=== PATIENT | male | born 1945 | race Caucasian/White ===

== ENCOUNTER 2023-10-26 19:41 | Emergency (ER) | payer MEDICARE, OTHER, SELFPAY ==
[2023-10-26 19:43] VITALS: BP 105/71
--- NOTE | 2023-10-26 20:05 | ED.GENMED ---
History of Present Illness
General
Chief Complaint: Fever
Source: patient
Exam Limitations: none
Time Seen by Provider: 10/26/23 19:55
Nursing documentation reviewed up to this point in time: agreed with
Travel History
Have you had any contact with someone who has COVID-19?: No
Do you have any symptoms of coronavirus? Fever > 100 degrees, chills, cough, shortness of breath, sore throat, loss of taste or smell, muscle aches, or headache?: No
History of Present Illness
History of Present Illness:
Patient to ED with complaint of fever and chills x 1 week. He was seen by PCP and placed on macrobid for suspected UTI. States he did not have any in improvement. He was evaluated by his urololgist who placed him on Bactrim DS. He was told to
come to ED if after 2 days he did not improve. He reports no improvement.
Past History
Past History
ED Past Medical History: CAD, HTN and Hypercholesterolemia
ED Past Surgical History: Cardiac (stents) and Urological (Urostomy x 15 yrs)
Review of Systems
Review of Systems
Allergies reviewed?: Yes
All Other Systems: ROS reviewed and negative except as documented in HPI and ROS
Constitutional: Reports fever and chills
EENT: Reports no symptoms
Respiratory: Reports no symptoms
Cardiac: Reports no symptoms
ABD/GI: Reports no symptoms
: Reports no symptoms
Musculoskeletal: Reports no symptoms
Skin: Reports no symptoms
Neurological: Reports no symptoms
Psychiatric: Reports no symptoms
Phy Exam
General Physical Exam
General Presentation: well appearing and no apparent distress
General age: appears stated age
General Skin: warm and dry
General Habitus: normal
General Mental: alert
Pulmonary Exam
Pulmonary Exam: lungs clear and no respiratory distress
Gastrointestinal Exam
Gastrointestinal Exam: normal bowel sounds, non tender, soft, no organomegaly, non distended, no cva tenderness and other (Urostomy tube intact. No redness, swelling or discharge at insertion site. Tube changed by urologist every 10 weeks. Last
change 3 weeks ago.)
Musculoskeletal Exam
Musculoskeletal Exam: full ROM and neuro vasc intact
Skin Exam
Skin Exam: normal color, warm/dry and no rash
Psychiatric Exam
Psychiatric Exam: normal mood/affect
Course
Orders/Labs/Results
Orders:
Orders
10/26/23 20:04
CR Chest - 2 Views Urgent
Comment:
Reason For Exam: fever
10/26/23 20:08
Blood Culture Q30M
IKER Source: Blood/Venous
Specimen Description:
Blood Culture Q30M
IKER Source: Blood/Venous
Specimen Description:
10/26/23 20:09
COVID-19 Antigen Urgent
Source: Nasal Swab
Complete Blood Count/With Diff Urgent
Comprehensive Metabolic Panel Urgent
Lactic Acid Urgent
Influenza A+B Rapid Molecular Urgent
IKER Source: Nasal Swab
Specimen Description:
10/26/23 20:16
Urinalysis Reflex To Culture Urgent
Date Specimen was Collected: 10/26/23
Time Specimen was Collected: 20:15
Urine Microscopic Reflex Cult Urgent
Urine Culture Urgent
IKER Source: U
Specimen Description:
Date Specimen was Collected: 10/26/23
Time Specimen was Collected: 20:15
10/26/23 20:58
CefTRIAXone [Rocephin] 1,000 mg IV NOW STA
Abnormal Lab Results
10/26/23 10/26/23
20:09 20:16
RBC 4.41 L 10^6/uL
(4.70-6.10)
MCH 32.0 H pg
(27.0-31.0)
Abs Immat Gran (auto) 0.1 H 10^3/uL
(0-0.05)
Absolute Lymphs (auto) 1.0 L 10^3/uL
(1.2-3.4)
Immature Gran % 1.2 H %
(0-0.5)
Lymphocytes % 14.5 L %
(20.5-51.1)
Sodium 133 L mmol/L
(135-145)
Glucose 140 H mg/dl
(70-99)
Lactic Acid 2.1 H mmol/L
(0.7-2.0)
Ur Occult Blood Reflex Trace A
(Negative)
Leukocyte Esterase Rfl 1+ A
(Negative)
Urine WBC (Reflex) 16-20 A /HPF
(0-5)
10/26/23 20:09
10/26/23 20:09
Vital Signs
Initial and Last Documented VS:
Initial Vital Signs
Temp Pulse Resp BP Pulse Ox
98.1 F 77 16 105/71 94
10/26/23 19:43 10/26/23 19:43 10/26/23 19:43 10/26/23 19:43 10/26/23 19:43
Last Documented Vital Signs
Temp Pulse Resp BP Pulse Ox
98.1 F 77 16 105/71 94
10/26/23 19:43 10/26/23 19:43 10/26/23 19:43 10/26/23 19:43 10/26/23 19:43
*Radiology
Radiology exam reviewed: radiology read reviewed
*Pulse Oximetry
Patient hypoxic: no
Update Note
Update Note:
Patient remains awake and alert, nontoxic appearing. Labs reviewed, normal WBC with sli elevation in lactic acid. Urine culture is pending. Will give dose of rocephin in dept and change antibiotic to cefadroxil 500mg bid. He is discharged josé miguel
and will follow closely with PCP and urology.
ED Attending Note
-
Portions of this chart may have been created with voice recognition software.� Occasional wrong word or��sound alike� substitutions may have occurred due to the inherent limitations of voice recognition software.
Discharge Plan
Departure
Patient with high blood pressure during this ER visit?: No
Condition: Good
Covid-19: Not Applicable
Discharge Problem:
Acute UTI
Prescriptions:
New
cefadroxil 500 mg capsule
500 mg PO BID Qty: 14 0RF
Referrals:
Ramesh Cruz MD [Family Provider] - Follow up in 2-3 days
Interventions
Interventions:
*Risk Screen - Suicide Last Done: 10/26/23 19:43
*General Assessment Last Done: 10/26/23 19:43
*Neglect/Abuse Screening Last Done: 10/26/23 19:43
ED- Fall Risk Assessment Last Done: 10/26/23 20:23
*ED COVID-19 Vaccine History Last Done: 10/26/23 20:23
ED- Neurological Assessment Last Done: 10/26/23 20:23
ED-Skin Assessment Last Done: 10/26/23 20:23
Discharge Date and Time
Print Language: AMHARIC
[2023-10-26 20:23] VITALS: BMI 25.5
[2023-10-26 20:24] LABS: Urine Albumin Negative (Neg - Trace); Urine Bilirubin Negative (Negative); Urine Character Clear (Clear); Urine Color Yellow; Urine Glucose Negative (Negative); Urine Ketone Negative (Negative); Urine Leukocyte 1+ (Negative); Urine Nitrite Negative (Negative); Urine Occult Blood Trace (Negative); Urine Urobilinogen Negative (Neg - 1+); Urine pH 6.5 (5.0-9.0)
[2023-10-26 20:25] LABS: % Basophils 0.9 % (0-2); % Eosinophils 1.3 % (0-6); % Immature Granulocytes 1.2 % (0-0.5); % Lymphocytes 14.5 % (20.5-51.1); % Neutrophils 75.1 % (42.2-75.2); Absolute Basophils 0.1 10^3/uL (0-0.2); Absolute Eosinophils 0.1 10^3/uL (0-0.7); Absolute Immature Granulocytes 0.1 10^3/uL (0-0.05); Absolute Monocytes 0.5 10^3/uL (0.1-0.6); Hemoglobin 14.1 g/dL (13.0-18.0); Mean Corp Hgb Conc. 35.3 g/dL (33.0-37.0); Mean Corpuscular Volume 90.7 fL (80.0-94.0); Mean Platelet Volume 9.1 fL (7.4-10.4); Nucleated Red Blood Cells % 0 % (-); Platelet Count 249 10^3/uL (130-400); Red Blood Cell Count 4.41 10^6/uL (4.70-6.10); Red Cell Dist. Width 13.6 % (11.5-14.5); White Blood Cell Count 6.7 10^3/uL (4.8-10.8)
[2023-10-26 20:36] LABS: ALT (SGPT) 35 U/L (0-50); AST (SGOT) 44 U/L (17-59); Albumin 3.9 g/dl (3.5-5.0); Alkaline Phosphatase 73 U/L (38-126); Blood Urea Nitrogen 9 mg/dl (9-20); Calcium 8.9 mg/dl (8.4-10.2); Carbon Dioxide 24 mmol/L (22-30); Chloride 101 mmol/L (98-107); Estimated Creatinine Clearance 61 ml/min; Glucose 140 mg/dl (70-99); Lactic Acid 2.1 mmol/L (0.7-2.0); Potassium 4.2 mmol/L (3.5-5.1); Sodium 133 mmol/L (135-145); Total Bilirubin 0.6 mg/dl (0.2-1.3); Total Protein 6.8 g/dl (6.3-8.2); eGFR > 60.00
[2023-10-26 20:37] LABS: COVID-19 Antigen Negative (Negative)
[2023-10-26 20:38] LABS: Urine Red Blood Cell 0-2 /HPF (0-2); Urine White Cell 16-20 /HPF (0-5)
[2023-10-26] MEDS: ROCEPHIN 1000 MG IV (21:14)
== END 2023-10-26 21:31 | disposition home or self-care (01) ==
LOC: EMR 19:41
PROVIDERS: Nurse Practitioner; EMERGENCY PHYSICIAN Emergency Medicine; FAMILY PHYSICIAN Internal Medicine
DX: N39.0 Urinary tract infection, site not specified (principal); I25.10 Atherosclerotic heart disease of native coronary artery without angina pectoris; I10 Essential (primary) hypertension; E78.00 Pure hypercholesterolemia, unspecified
CPT/HCPCS: 99283; 96374; 71046; 80053; 81003; 81015; 83605; 85025; 87040; 87086; 87502; 87811

== ENCOUNTER 2024-09-08 20:44 | Inpatient (IN) | payer MEDICARE, OTHER, SELFPAY ==
[2024-09-08 17:04] VITALS: BP 132/71
[2024-09-08 17:21] LABS: % Basophils 0.5 % (0-2); % Eosinophils 0.2 % (0-6); % Immature Granulocytes 0.4 % (0-0.5); % Monocytes 5.6 % (1.7-9.3); % Neutrophils 88.3 % (42.2-75.2); Absolute Basophils 0.1 10^3/uL (0-0.2); Absolute Immature Granulocytes 0.1 10^3/uL (0-0.05); Absolute Monocytes 1.1 10^3/uL (0.1-0.6); Absolute Neutrophils 17.1 10^3/uL (1.4-6.5); Hematocrit 44.3 % (39.0-52.0); Hemoglobin 15.8 g/dL (13.0-18.0); Mean Corp Hgb Conc. 35.7 g/dL (33.0-37.0); Mean Corpuscular Hgb 31.9 pg (27.0-31.0); Mean Corpuscular Volume 89.5 fL (80.0-94.0); Mean Platelet Volume 9.2 fL (7.4-10.4); Nucleated Red Blood Cells % 0 % (-); Platelet Count 258 10^3/uL (130-400); Red Blood Cell Count 4.95 10^6/uL (4.70-6.10); Red Cell Dist. Width 13.1 % (11.5-14.5); White Blood Cell Count 19.4 10^3/uL (4.8-10.8)
[2024-09-08 17:35] LABS: ALT (SGPT) 21 U/L (0-50); AST (SGOT) 24 U/L (17-59); Albumin 4.4 g/dl (3.5-5.0); Alkaline Phosphatase 66 U/L (38-126); Blood Urea Nitrogen 10 mg/dl (9-20); Calcium 9.5 mg/dl (8.4-10.2); Carbon Dioxide 20 mmol/L (22-30); Chloride 103 mmol/L (98-107); Glucose 172 mg/dl (70-99); Potassium 4.1 mmol/L (3.5-5.1); Sodium 136 mmol/L (135-145); Total Bilirubin 1.3 mg/dl (0.2-1.3); Total Protein 7.1 g/dl (6.3-8.2); eGFR > 60.00
--- NOTE | 2024-09-08 17:54 | ED.GENMED ---
History of Present Illness
General
Chief Complaint: Urinary Symptoms
Time Seen by Provider: 09/08/24 17:52
History of Present Illness
History of Present Illness:
78-year-old male presents emergency department for evaluation of fever, generalized weakness, and urinary frequency. He has a chronic indwelling suprapubic catheter and states he has had to empty it more often than normal. Denies any nausea
vomiting or diarrhea. Feels very weak and having difficulty ambulating under his own power.
Past History
Past History
ED Past Medical History: CAD, HTN and Hypercholesterolemia
ED Past Surgical History: Cardiac (stents) and Urological (Urostomy x 15 yrs)
Review of Systems
Review of Systems
Allergies reviewed?: Yes
All Other Systems: ROS reviewed and negative except as documented in HPI and ROS
Phy Exam
Physical Exam
Physical Exam:
GEN: Well appearing, NAD, WDWN
HEENT: Oral mucosa moist, no scleral icterus
Cardiac: Regular rate
Lung: No respiratory distress, no tachypnea
Abdomen: Soft, grossly nontender. Suprapubic catheter present
MSK: No gross deformity or injuries
Skin: Good color, no pallor or jaundice, no rashes
Neuro: AO x3, moves all extremities freely
Psych: Calm, cooperative
Course
Orders/Labs/Results
Orders:
Orders
09/08/24 Breakfast
Cholesterol Lowering
At Your Request: Full Participation
Does patient need a safe tray?: No
09/08/24 17:13
Complete Blood Count/With Diff Urgent
Comprehensive Metabolic Panel Urgent
09/08/24 18:03
0.9% Sodium Chloride 1000 ml [Nss] 1,000 ml IV BOLUS
LevoFLOXacin 750 MG/150 ML [Levaquin] 750 mg in 150 ml IV NOW
09/08/24 18:09
Urinalysis Reflex To Culture Urgent
Date Specimen was Collected: 09/08/24
Time Specimen was Collected: 17:56
Urine Microscopic Reflex Cult Urgent
Urine Culture Urgent
IKER Source: U
Specimen Description:
Date Specimen was Collected: 09/08/24
Time Specimen was Collected: 17:56
09/08/24 18:21
Lactic Acid Q4H
Comment: CANCEL 2nd LACTIC ACID IF 1st LACTIC ACID IS LESS THAN 2
Blood Culture Q30M
IKER Source: Blood/Venous
Specimen Description:
09/08/24 18:29
Blood Culture Q30M
IKER Source: Blood/Venous
Specimen Description:
09/08/24 20:21
Admit/Transfer Patient As Directed
Co-Sign Provider:
Level of Care: Inpatient admission
Assign to:: Medical/Surgical
Physician / Group: Sharath
Diagnosis: Sepsis, CAUTI
Reason for Hospitalization: IV abx
Expected length of stay greater than two midnights?: Yes
ELOS- Estimated Length of Stay in days: 3
I certify the patient meets the requirements for IP care: Yes
09/08/24 20:22
PRN Pain Medication Management As Directed
May give lesser potent ordered pain med per pt: Yes
preference::
Protocol:: Medication orders for pain may be administered in a
manner that supports deferring to patient preference
when the pt is:
- Requesting an ordered lesser potent pain medication.
Least to most potent pain medications are defined
as: acetaminophen < NSAID < tramadol < opioids
(morphine, oxycodone, hydromorphone).
- Requesting a lesser dose of the same medication IF
ORDERED.
- Requesting a less intrusive route of administration
if both routes are prescribed by the provider (PO <
IV).
09/08/24 20:24
Code Status As Directed
Resuscitation Status: Full Code
09/08/24 21:36
Acetaminophen [Tylenol] 650 mg PO Q4HPRN PRN
Zolpidem Tartrate [Ambien] 10 mg PO HSPRN PRN
09/08/24 21:36
Activity As Directed
Activity Level: Out of Bed-Early Mobility
With Assistance
Pneumatic Compression Sleeves As Directed
Type: Knee high
Vital Signs As Directed
Frequency: Per unit guidelines
DX Deep Vein Thrombosis Video Routine
09/08/24 22:58
Lactic Acid Q4H
Comment: CANCEL 2nd LACTIC ACID IF 1st LACTIC ACID IS LESS THAN 2
09/09/24 06:00
Basic Metabolic Panel IN AM
Complete Blood Count/No Diff IN AM
Levothyroxine [Synthroid] 25 mcg PO DAILY@0600
09/09/24 08:00
Aspirin Low Dose EC [Aspir Low (Enteric Coated)] 81 mg PO DAILY
Clopidogrel Bisulfate [Plavix] 75 mg PO DAILY
Ezetimibe [Zetia] 10 mg PO DAILY
Rosuvastatin Calcium [Crestor] 20 mg PO DAILY
Abnormal Lab Results
09/08/24 09/08/24 09/08/24
17:13 18:09 18:21
WBC 19.4 H 10^3/uL
(4.8-10.8)
MCH 31.9 H pg
(27.0-31.0)
Abs Immat Gran (auto) 0.1 H 10^3/uL
(0-0.05)
Absolute Neuts (auto) 17.1 H 10^3/uL
(1.4-6.5)
Absolute Lymphs (auto) 1.0 L 10^3/uL
(1.2-3.4)
Absolute Monos (auto) 1.1 H 10^3/uL
(0.1-0.6)
Neutrophils % 88.3 H %
(42.2-75.2)
Lymphocytes % 5.0 L %
(20.5-51.1)
Carbon Dioxide 20 L mmol/L
(22-30)
Glucose 172 H mg/dl
(70-99)
Lactic Acid 2.4 H mmol/L
(0.7-2.0)
Ur Occult Blood Reflex 2+ A
(Negative)
Urine Nitrite (Reflex) Positive A
(Negative)
Leukocyte Esterase Rfl 3+ A
(Negative)
Urine RBC 3-6 A /HPF
(0-2)
Urine WBC (Reflex) >100 A /HPF
(0-5)
Urine Bacteria (Reflex) Many A
(Negative)
Urine Albumin (Reflex) 2+ A
(Neg - Trace)
09/08/24 17:13
09/08/24 17:13
Vital Signs
Initial and Last Documented VS:
Initial Vital Signs
Temp Pulse Resp BP Pulse Ox
98.2 F 96 18 132/71 94
09/08/24 17:04 09/08/24 17:04 09/08/24 17:04 09/08/24 17:04 09/08/24 17:04
Last Documented Vital Signs
Temp Pulse Resp BP Pulse Ox
98.2 F 96 18 95/81 99
09/08/24 17:04 09/08/24 17:04 09/08/24 17:04 09/08/24 21:00 09/08/24 21:00
MDM/Problems Addressed
MDM/Problems Addressed:
Due to signs of sepsis associated with a catheter associated UTI will admit for IV antibiotics. The suprapubic catheter was changed at the bedside by myself
*Critical Care Note
Total Time (30-74mins, 75-104mins- exclusive of procedures): Not Applicable
ED Attending Note
-
Portions of this chart may have been created with voice recognition software.� Occasional wrong word or��sound alike� substitutions may have occurred due to the inherent limitations of voice recognition software.
Discharge Plan
Departure
Patient Disposition: Admit
Date of Disposition: 09/08/24
Time of Disposition: 19:56
Admit to: Med/Surg
Presentation/result/management discussed w/ accepting MD/DO: Hospitalist
Discharge Problem:
Urinary tract infection
Interventions
Interventions:
*Risk Screen - Suicide Last Done: 09/08/24 17:04
*General Assessment Last Done: 09/08/24 17:04
*Neglect/Abuse Screening Last Done: 09/08/24 17:06
*ED- Fall Risk Assessment Last Done: 09/08/24 18:35
*ED COVID-19 Vaccine History Last Done: 09/08/24 17:04
*Nursing Disposition Last Done: 09/08/24 21:38
ED-Male Genitourinary Assessment Last Done: 09/08/24 18:35
Discharge Date and Time
Discharge Date/Time: 09/08/24 21:38
[2024-09-08 18:33] VITALS: BP 108/59
[2024-09-08 18:34] VITALS: BMI 23.6
[2024-09-08 18:54] LABS: Lactic Acid 2.4 mmol/L (0.7-2.0)
[2024-09-08] MEDS: NSS 1000 IV (19:07)
[2024-09-08] MEDS: LEVAQUIN 150 IV (19:07)
[2024-09-08 19:40] LABS: Urine Albumin 2+ (Neg - Trace); Urine Bilirubin Negative (Negative); Urine Character Cloudy (Clear); Urine Color Yellow; Urine Glucose Negative (Negative); Urine Ketone Negative (Negative); Urine Leukocyte 3+ (Negative); Urine Nitrite Positive (Negative); Urine Occult Blood 2+ (Negative); Urine Specific Gravity 1.015 (<1.030); Urine Urobilinogen Negative (Neg - 1+)
[2024-09-08 20:00] VITALS: BP 111/64
[2024-09-08 20:13] LABS: Urine Bacteria Many (Negative); Urine Squamous Cell 0-2 /LPF (Few); Urine White Cell >100 /HPF (0-5)
--- NOTE | 2024-09-08 20:26 | HPS.HSE ---
Addendum entered and electronically signed by Raza Early DO 09/08/24 21:15:
Patient seen and examined independently. Agree with findings and plan as set forth by Krista Ramos PA-C.
Patient is a 78y M with PMH significant for ASCVD, hypothyroidism and chronic urinary retention s/p suprapubic tube who presents to ED complaining of urinary frequency, urgency and generalized fatigue. Patient states that his symptoms started
today. He felt poorly overall and slept for about 4 hours today. He denies any abdominal pain, flank pain, etc.
Evaluation in the ED reveals UA consistent with infection.
Ass:
CAUTI
Sepsis secondary to the above
ASCVD
Hypothyroidism
Eczema
Insomnia
Plan:
Admit for further evaluation and treatment.
Continue levofloxacin pending culture data.
IVFs, suprapubic drainage (catheter changed in the ED0.
Continue usual outpatient medications.
Follow for clinical improvement.
Original Note:
Family Physician
-
Family Physician: NOT KNOW UNKNOWN - PT DOES
Chief Complaint
-
Weakness and Urinary Frequency
History of Present Illness
Patient is an 78 y/o male past medical history of coronary artery disease s/p stent, hyperlipidemia, hypothyroidism, eczema and chronic urinary retention with suprapubic tube who presents with weakness and urinary frequency. Patient has a capped
suprapubic urostomy. He reports he will empty his bladder via the urostomy but then shortly had has the sensation of needed to empty the bladder again. Today he developed profound weakness which was associated with temperature elevation of 99.5F.
Patient denies cloudy or foul smelling urine.
Medical History
Past Medical History
Past Medical History: Reports Other
Additional Past Medical History:
Coronary Artery Disease s/p Stents (2022)
Hyperlipidemia
Hypothyroidism
Eczema
Insomnia
Chronic Urinary Retention
Past Surgical History: Reports Other
Additional Past Surgical History:
Cardiac Stents
Suprapubic Tube
Social History
Tobacco: Former Smoker
Family History
Family History: Not pertinent
Allergies / Home Medications
Allergies reflects when Allergies were last updated in [employer].
Home Medications with original date entered in [employer]
Allergy/Medication List:
Allergies
Allergy/AdvReac Type Severity Reaction Status Date / Time
No Known Allergies Allergy Verified 09/08/24 17:06
Home Medications
aspirin 81 mg tablet 81 mg PO DAILY 09/08/24
clopidogrel 75 mg tablet 75 mg PO DAILY 09/08/24
dupilumab 300 mg/2 mL subcutaneous pen injector (Dupixent) 300 mg SC WEEKLY 09/08/24
ezetimibe 10 mg tablet 10 mg PO DAILY 09/08/24
levothyroxine 25 mcg tablet 25 mcg PO DAILY 09/08/24
rosuvastatin 20 mg tablet 20 mg PO DAILY 09/08/24
zolpidem 10 mg tablet 10 mg PO HSPRN PRN sleep 09/08/24
Review of Systems
-
A 12 point ROS was completed and negative except as noted: Yes
Constitutional: Denies Fever
Respiratory: Denies Cough or Trouble Breathing
Cardiac: Denies Chest Pain or Palpitations
Abdomen/GI: Denies Abdominal Pain, Nausea, Vomiting or Diarrhea
: Reports See HPI
Physical Exam
Vital Signs
Vital Signs
Temp Pulse Resp BP Pulse Ox
98.2 F 96 18 111/64 97
09/08/24 17:04 09/08/24 17:04 09/08/24 17:04 09/08/24 20:00 09/08/24 20:00
Physical Exam
General: Comfortable and Conversant
HEENT: Anicteric and Moist mucous membranes
Respiratory: Clear and Non Labored Respirations
Cardiac: S1/S2 and Regular Rhythm
GI: Soft and Non Tender
Genito-urinary: Suprapubic Tube
Musculoskeletal: No Clubbing and No Cyanosis
Skin: Warm and Dry
Neuro: Awake, Alert, Oriented and Nonfocal/grossly intact
Psych: Calm
Laboratory Results
-
09/08/24 17:13
09/08/24 17:13
Laboratory Results
Lactic Acid 2.4 mmol/L (0.7-2.0) H 09/08/24 18:21
Total Bilirubin 1.3 mg/dl (0.2-1.3) 09/08/24 17:13
AST 24 U/L (17-59) 09/08/24 17:13
ALT 21 U/L (0-50) 09/08/24 17:13
Alkaline Phosphatase 66 U/L (38-126) 09/08/24 17:13
Data Reviewed
-
Lab Data: Labs Reviewed by me
Old Records: Reviewed
Impression/Plan
-
Sepsis secondary to Catheter-Associated Urinary Tract Infection
-Continue Levaquin based on prior culture data
-Await urine culture
Coronary Artery Disease s/p Stents (2022)
-Continue aspirin and Plavix
Hyperlipidemia
-Continue Crestor and Zetia
Hypothyroidism
-Continue levothyroxine
Insomnia
-Continue Ambien
Eczema
-Patient maintained on Dupixent as outpatient
DVT proph: SCDs
Code Status: Full Code
[2024-09-08 21:00] VITALS: BP 95/81
--- NOTE | 2024-09-08 21:40 | PTCARENOTE ---
Patient arrived on unit from ED via stretcher - ambulated to bed with standby assist as patient reports recent issues with balance and some weakness. Patient is alert and oriented. Arrived with bed soaked in urine as cap to suprapubic cath was
removed and not replaced. SPT exchanged in ED. Connected to urinary drainage bag upon arrival. Patient requesting to have tube capped off, MD orders to have tube to drainage bag at this time - reviewed with patient and understanding met. PRN Tylenol
and Ambien provided to patient once settled and resting in bed comfortably at this time. Will monitor.
[2024-09-08 21:49] VITALS: BMI 23.7
[2024-09-08] MEDS: AMBIEN 10 MG PO (22:44)
[2024-09-08] MEDS: TYLENOL 650 MG PO (22:44)
[2024-09-08 23:00] VITALS: BP 100/60
[2024-09-08 23:30] LABS: Lactic Acid 1.4 mmol/L (0.7-2.0)
[2024-09-09 06:00] VITALS: BMI 23.5
[2024-09-09] MEDS: SYNTHROID 25 MCG PO (06:01)
[2024-09-09 06:40] LABS: Blood Urea Nitrogen 10 mg/dl (9-20); Calcium 8.8 mg/dl (8.4-10.2); Carbon Dioxide 22 mmol/L (22-30); Chloride 103 mmol/L (98-107); Estimated Creatinine Clearance 76 ml/min; Glucose 121 mg/dl (70-99); Potassium 3.6 mmol/L (3.5-5.1); Sodium 136 mmol/L (135-145); eGFR > 60.00
[2024-09-09 06:51] LABS: Hematocrit 38.5 % (39.0-52.0); Hemoglobin 13.7 g/dL (13.0-18.0); Mean Corp Hgb Conc. 35.6 g/dL (33.0-37.0); Mean Corpuscular Hgb 32.2 pg (27.0-31.0); Mean Corpuscular Volume 90.4 fL (80.0-94.0); Mean Platelet Volume 9.4 fL (7.4-10.4); Platelet Count 196 10^3/uL (130-400); Red Blood Cell Count 4.26 10^6/uL (4.70-6.10); White Blood Cell Count 19.9 10^3/uL (4.8-10.8)
[2024-09-09 07:00] VITALS: BP 99/52
[2024-09-09] MEDS: ASPIR LOW (ENTERIC COATED) 81 MG PO (07:46)
[2024-09-09] MEDS: CRESTOR 20 MG PO (07:46)
[2024-09-09] MEDS: ZETIA 10 MG PO (07:46)
[2024-09-09] MEDS: PLAVIX 75 MG PO (07:46)
--- NOTE | 2024-09-09 09:00 | W.PN.HOSP.TC ---
Today's Communication/Plan
-
Continue Levaquin
Urine culture and blood culture pending
Assessment / Plan
Assessment / Plan
78-year-old m with chronic suprapubic catheter presenting with urinary frequency and malaise
# Sepsis secondary to CAUTI
- UA consistent with infection
- UCx and BCx pending
- Catheter changed in the ED
- Lactic acid 2.4 --> 1.4
- On Levaquin based on prior culture
- Tolerating diet
# Hypothyroidism
- Continue levothyroxine
# HLP
- Continue home meds
# Hypertension
# CAD status post PCI and stents
- Continue DAPT
DVT prophylaxis SCDs
Anticipated Discharge: 24 - 48 hours
Subjective/Interval History
-
Date of Service: September 09, 2024
Objective Data
-
Labs:
Laboratory Results
09/09/24
05:23
WBC 19.9 H
Hgb 13.7
Hct 38.5 L
Plt Count 196 D
Sodium 136
Potassium 3.6
Chloride 103
Carbon Dioxide 22
BUN 10
Creatinine 0.8
Glucose 121 H
Calcium 8.8
Vital Signs:
Vital Signs
Temp Pulse Resp BP Pulse Ox
99.4 F 83 16 100/60 93
09/08/24 23:00 09/08/24 23:00 09/08/24 23:00 09/08/24 23:00 09/09/24 08:08
I&O
09/08/24 09/09/24 09/10/24
06:59 06:59 06:59
Output Total 350 / 350
Balance -350 / -350
Review of Systems
-
History Source: Patient
Constitutional: Reports No Symptoms and Fatigue
EENT: Reports No Symptoms Reported
Respiratory: Reports No Symptoms
Cardiac: Reports No Symptoms
Abdomen/GI: Reports No Symptoms
Breast: Reports No Symptoms
Genitourinary: Reports No Symptoms
Musculoskeletal: Reports No Symptoms
Skin: Reports No Symptoms
Neuro: Reports No Symptoms
Endocrine: Reports No Symptoms
Hematologic / Lymphatic: Reports No Symptoms
Physical Exam
-
General: Well Developed, Well Nourished, No Apparent Distress and Comfortable
HEENT: Normocephalic
Respiratory: Clear to Auscultation
Cardiac: Regular Rhythm and S1/S2
GI: Soft, Nontender, Nondistended and Normal Bowel Sounds
Genito-urinary: No Costovertebral Tender and Supra Pubic Tube
Musculoskeletal: No Clubbing, No Cyanosis and No Edema
Skin: Warm
Neuro: Awake, Alert, Oriented and AO x 3
Psych: Calm
--- NOTE | 2024-09-09 09:48 | CM ---
Patient seen at bedside.
DX: Sepsis, CAUTI
IA completed
Lives at home with 2 story, 3 steps to enter, flight to bed at bath
PLOF: Independent
Denies DME
Denies VN/Rehab
PCP: Ramesh Cruz, [facility]
Pharmacy: [facility]
PLAN: home, no needs anticipated, CM continue to follow
--- NOTE | 2024-09-09 13:48 | W.PN.UPDATE ---
Update Note
Progress Note Update
Seen and examined by me independently in collaboration with the anesthesiology medical doctor.
Lab data and imaging data reviewed.
Addendum as below :
His main symptom with a UTI was generalized weakness and ambulatory dysfunction secondary weakness. Today he is feeling better. Still has some dysuria. He had nausea yesterday but not today. Tolerating diet and the appetite is not great yet. No
shortness of breath.
Abdomen soft.
Continue with Levaquin for CAUTI .
Suprapubic catheter changed in the ED.
Patient with systemic symptom improvement. Continue to follow clinical improvement as well as culture data.
[2024-09-09 15:00] VITALS: BP 115/55
[2024-09-09] MEDS: LEVAQUIN 150 IV (17:35)
[2024-09-09] MEDS: AMBIEN 10 MG PO (22:50)
[2024-09-09] MEDS: TYLENOL 650 MG PO (22:50)
[2024-09-09 23:00] VITALS: BP 102/54
[2024-09-10] MEDS: SYNTHROID 25 MCG PO (05:48)
[2024-09-10 07:00] VITALS: BP 98/48
[2024-09-10] MEDS: CRESTOR 20 MG PO (07:55)
[2024-09-10] MEDS: PLAVIX 75 MG PO (07:55)
[2024-09-10] MEDS: ZETIA 10 MG PO (07:55)
[2024-09-10] MEDS: ASPIR LOW (ENTERIC COATED) 81 MG PO (07:55)
[2024-09-10 08:02] LABS: % Basophils 0.3 % (0-2); % Eosinophils 1.2 % (0-6); % Immature Granulocytes 0.5 % (0-0.5); % Lymphocytes 9.7 % (20.5-51.1); % Monocytes 7.2 % (1.7-9.3); % Neutrophils 81.1 % (42.2-75.2); Absolute Eosinophils 0.2 10^3/uL (0-0.7); Absolute Immature Granulocytes 0.1 10^3/uL (0-0.05); Absolute Lymphocytes 1.5 10^3/uL (1.2-3.4); Absolute Monocytes 1.1 10^3/uL (0.1-0.6); Absolute Neutrophils 12.5 10^3/uL (1.4-6.5); Hematocrit 40.9 % (39.0-52.0); Mean Corp Hgb Conc. 34.2 g/dL (33.0-37.0); Mean Corpuscular Hgb 31.7 pg (27.0-31.0); Mean Corpuscular Volume 92.5 fL (80.0-94.0); Mean Platelet Volume 9.6 fL (7.4-10.4); Nucleated Red Blood Cells % 0 % (-); Platelet Count 218 10^3/uL (130-400); Red Blood Cell Count 4.42 10^6/uL (4.70-6.10); Red Cell Dist. Width 13.2 % (11.5-14.5); White Blood Cell Count 15.4 10^3/uL (4.8-10.8)
[2024-09-10 08:15] LABS: Blood Urea Nitrogen 10 mg/dl (9-20); Calcium 8.9 mg/dl (8.4-10.2); Carbon Dioxide 23 mmol/L (22-30); Chloride 104 mmol/L (98-107); Estimated Creatinine Clearance 76 ml/min; Glucose 105 mg/dl (70-99); Potassium 3.8 mmol/L (3.5-5.1); Sodium 138 mmol/L (135-145); eGFR > 60.00
--- NOTE | 2024-09-10 09:40 | W.PN.HOSP.TC ---
Addendum entered and electronically signed by Kofi Devries MD 09/10/24 23:36:
Attending Addendum-
I saw and evaluated the patient. I reviewed the resident�s note and agree with findings and plan as documented in the resident�s note. Sub: regaining appetite. nrimala po. seen with . No fevers chills NV. Full 12 point ROS reviewed and negative
except as documented Exam: Vitals reviewed in chart GEN-NAd heart RRR lungs clear abd soft LE no edema SP tube in place draining clear yellow urine
Plan:
# Sepsis secondary to CAUTI
- UCx e coli- sensi pend
- BCx-NGTD
- Catheter changed in the ED
- leukocytosis resolving
- cont Levaquin for now
- Tolerating diet
- trend cbc
# Hypothyroidism
- Continue levothyroxine
# HLP
- Continue home meds
# Hypertension
# CAD status post PCI and stents
- Continue DAPT
DVT prophylaxis SCDs
Dispo DC home in am if sensi back
Time spent coordinating care, review of plan of care with resident, personally reviewed records in EMR, med rec, consults, notes, labs, radiology, d/w nursing and � 52 mins
Original Note:
Today's Communication/Plan
-
Continue Levaquin
Awaiting blood culture
Awaiting urine culture sensitivity
Assessment / Plan
Assessment / Plan
78-year-old m with chronic suprapubic catheter presenting with urinary frequency and generalized weakness.
Assessment/plan
1. CAUTI
Urinalysis�evidence of infection
White count trending down�15.4, patient is afebrile
Urine culture�E. coli
Catheter changed in the ED
Lactic acid 2.4 --> 1.4
Based on prior urine culture and sensitivity-Stenotrophomonas maltophilia sensitive to Levaquin
Started on Levaquin�day 2, continue
Tolerating diet well
2. Hypothyroidism
- Continue levothyroxine
3. Hyperlipidemia
- Continue rosuvastatin, ezetimibe
4.CAD s/p PCI and stents
- Continue aspirin, clopidogrel
DVT prophylaxis SCDs
PT/OT�no need of skilled rehab.
Anticipated Discharge: 24 - 48 hours
Subjective/Interval History
-
Date of Service: September 10, 2024
Patient reports having some muscle soreness.
Objective Data
-
Labs:
Laboratory Results
09/10/24
06:57
WBC 15.4 H
Hgb 14.0
Hct 40.9
Plt Count 218
Sodium 138
Potassium 3.8
Chloride 104
Carbon Dioxide 23
BUN 10
Creatinine 0.8
Glucose 105 H
Calcium 8.9
Vital Signs:
Vital Signs
Temp Pulse Resp BP Pulse Ox
98.1 F 74 18 102/54 97
09/09/24 23:00 09/09/24 23:00 09/09/24 23:00 09/09/24 23:00 09/09/24 23:00
I&O
09/09/24 09/10/24 09/11/24
06:59 06:59 06:59
Output Total 350 / 350 1300 / 1300
Balance -350 / -350 -1300 / -1300
Review of Systems
-
All other systems: Reviewed and negative (Mentioned as above)
Physical Exam
-
General: Well Developed, Well Nourished and No Apparent Distress
HEENT: Normocephalic and Atraumatic
Respiratory: Clear to Auscultation
Cardiac: Regular Rhythm and S1/S2
GI: Soft, Nontender, Nondistended and Normal Bowel Sounds
Genito-urinary: No Costovertebral Tender and Supra Pubic Tube
Skin: Warm and Dry
Neuro: Awake, Alert, Oriented and AO x 3
[2024-09-10] MEDS: TYLENOL 650 MG PO ×2 (10:56→19:57)
--- NOTE | 2024-09-10 11:05 | CM ---
Spoke with patient and spouse bedside.
Patient with SPT, care for himself at home.
IMM completed.
Per patient and spouse possible d/c tomorrow.
Plan: Home no needs anticipated.
[2024-09-10 15:17] VITALS: BP 93/51
[2024-09-10] MEDS: LEVAQUIN 150 IV (17:13)
[2024-09-10] MEDS: AMBIEN 10 MG PO (23:17)
[2024-09-10 23:47] VITALS: BP 114/60
[2024-09-11] MEDS: SYNTHROID 25 MCG PO (06:01)
[2024-09-11 07:25] VITALS: BP 112/62
[2024-09-11] MEDS: ZETIA 10 MG PO (07:48)
[2024-09-11] MEDS: PLAVIX 75 MG PO (07:48)
[2024-09-11] MEDS: CRESTOR 20 MG PO (07:48)
[2024-09-11] MEDS: ASPIR LOW (ENTERIC COATED) 81 MG PO (07:48)
[2024-09-11 08:31] LABS: Hematocrit 38.3 % (39.0-52.0); Hemoglobin 13.4 g/dL (13.0-18.0); Mean Corpuscular Hgb 31.8 pg (27.0-31.0); Mean Platelet Volume 9.7 fL (7.4-10.4); Platelet Count 216 10^3/uL (130-400); Red Blood Cell Count 4.21 10^6/uL (4.70-6.10); Red Cell Dist. Width 13.2 % (11.5-14.5); White Blood Cell Count 9.3 10^3/uL (4.8-10.8)
[2024-09-11 09:11] LABS: Blood Urea Nitrogen 10 mg/dl (9-20); Calcium 8.7 mg/dl (8.4-10.2); Carbon Dioxide 28 mmol/L (22-30); Chloride 102 mmol/L (98-107); Estimated Creatinine Clearance 76 ml/min; Glucose 99 mg/dl (70-99); Sodium 138 mmol/L (135-145); eGFR > 60.00
--- NOTE | 2024-09-11 10:31 | CM ---
Patient seen at bedside with daughter Sadaf
Electrocardiogram today
IMM explained & signed. In chart
PLAN: Home, no needs anticipated
to transport
[2024-09-11] MEDS: KEFLEX 500 MG PO (13:09)
[2024-09-11] MEDS: PREVNAR 20 0.5 ML IM (13:37)
[2024-09-11 13:50] VITALS: BP 110/60
--- NOTE | 2024-09-11 17:53 | W.PN.HOSP.TC ---
Addendum entered and electronically signed by Kofi Devries MD 09/12/24 00:31:
Attending Addendum-
I saw and evaluated the patient. I reviewed the resident�s note and agree with findings and plan as documented in the resident�s note. Sub: nirmala po. seen with and daughter. No fevers chills NV. Full 12 point ROS reviewed and negative except as
documented Exam: Vitals reviewed in chart GEN-NAd heart RRR lungs clear abd soft LE no edema SP tube in place draining clear yellow urine
Plan:
# Sepsis secondary to CAUTI
- UCx e coli- giles sensi deescalate to keflex x 10 total days treatment
- BCx-NGTD
- Catheter changed in the ED
- leukocytosis resolved
- Tolerating diet
# Hypothyroidism
- Continue levothyroxine
# HLP
- Continue home meds
# Hypertension
# CAD status post PCI and stents
- Continue DAPT
DVT prophylaxis SCDs
Dispo DC home
Time spent coordinating care, DC planning, review of DC plan of care with resident, transition of care, review of records, med rec/scripts sent electronically, consults, notes, d/w consultants, nursing, family, pharmacy and CM� 33 mins
Original Note:
Today's Communication/Plan
-
discharge on Keflex 500 mg, twice daily.
Assessment / Plan
Assessment / Plan
78-year-old m with chronic suprapubic catheter presenting with urinary frequency and generalized weakness.
Assessment/plan
1. CAUTI
Urinalysis�evidence of infection
White count trending down�9.3, patient is afebrile
Urine culture�E. coli
Catheter changed in the ED
Transitioned from Levaquin to Keflex, will discharge him on Keflex 500 mg, twice daily for 4 more days.
Tolerating diet well
2. Hypothyroidism
- Continue levothyroxine
3. Hyperlipidemia
- Continue rosuvastatin, ezetimibe
4.CAD s/p PCI and stents
- Continue aspirin, clopidogrel
DVT prophylaxis SCDs
PT/OT�no need of skilled rehab.
Anticipated Discharge: Today
Subjective/Interval History
-
Date of Service: September 11, 2024
Objective Data
-
Labs:
Laboratory Results
09/11/24
07:10
WBC 9.3
Hgb 13.4
Hct 38.3 L
Plt Count 216
Sodium 138
Potassium 4.0
Chloride 102
Carbon Dioxide 28
BUN 10
Creatinine 0.8
Glucose 99
Calcium 8.7
Vital Signs:
Vital Signs
Temp Pulse Resp BP Pulse Ox
98.0 F 66 16 110/60 94
09/11/24 13:50 09/11/24 13:50 09/11/24 13:50 09/11/24 13:50 09/11/24 07:25
I&O
09/10/24 09/11/24 09/12/24
06:59 06:59 06:59
Intake Total 960 / 960 480 / 480
Output Total 1300 / 1300 1650 / 1650 700 / 700
Balance -1300 / -1300 -690 / -690 -220 / -220
Physical Exam
-
General: Well Developed, Well Nourished and No Apparent Distress
HEENT: Normocephalic and Atraumatic
Respiratory: Clear to Auscultation
Cardiac: Regular Rhythm and S1/S2
GI: Soft, Nontender, Nondistended and Normal Bowel Sounds
Genito-urinary: Supra Pubic Tube (Clear urine in the bag)
Skin: Warm and Dry
Neuro: Awake, Alert, Oriented and AO x 3
--- NOTE | 2024-09-12 20:11 | W.DCSUMMARY ---
Addendum entered and electronically signed by Kofi Devries MD 09/12/24 23:43:
Read, reviewed, and agree. See same day progress note for additional details.
Micah Devries MD
Original Note:
Documented by User: Joey Scott MD, Resident 09/12/24 20:22
Discharge Summary
Discharge Data
Date of Admission: 09/08/24
Date of Discharge: 09/11/24
-
Pending Results: No
Hospital Course
Discharging Physician : Dr. Kofi Devries, Dr. Cook.
Disposition : Home
Principal Discharge diagnosis : Catheter associated urinary tract infection
Chronic Discharge diagnosis : Hypothyroidism, hyperlipidemia, hypertension, CAD s/p PCI and stents
Hospital Course : 78 y/o male past medical history of coronary artery disease s/p stent, hyperlipidemia, hypothyroidism, eczema and chronic urinary retention with suprapubic tube who presents with weakness and urinary frequency. Patient has a
capped suprapubic urostomy. He reports he will empty his bladder via the urostomy but then shortly had has the sensation of needed to empty the bladder again. Suprapubic catheter was changed in the ED. UA consistent with infection, elevated
lactate at 2.4, elevated white count. Patient was started on Levaquin based on prior culture. Urine culture�E. coli, blood culture was negative. Patient has been monitored with daily labs and vitals. His home medications for hypertension,
hypothyroidism, and hyperlipidemia, CAD has been continued. PT/OT did not recommend skilled rehab. Patient has clinically improved, and stable to be discharged home. Antibiotic transitioned from Levaquin to Keflex at discharge.
Discharge Plan
-
Patient Disposition: Home (Routine Discharge)
Discharge Diagnosis/Procedures: CAUTI
Condition: Good
Diet: Low Cholesterol
Activity: As tolerated
Driving Restrictions: As prior to admission
Instructions: Lowering the risk of a catheter-associated urinary tract infection
Referrals:
UNKNOWN - PT DOES,NOT KNOW [Family Provider] -
Ramesh Cruz MD [Non-Admitting Privileges] - in less than 1 week
Prescriptions:
New
cephalexin 500 mg Capsule
500 mg PO Q12H Qty: 7 0RF
Continued
clopidogrel 75 mg tablet
75 mg PO DAILY
levothyroxine 25 mcg tablet
25 mcg PO DAILY
zolpidem 10 mg tablet
10 mg PO HSPRN PRN (Reason: sleep)
ezetimibe 10 mg tablet
10 mg PO DAILY
rosuvastatin 20 mg tablet
20 mg PO DAILY
Dupixent Pen 300 mg/2 mL pen injector
300 mg SC WEEKLY
aspirin 81 mg Tablet
81 mg PO DAILY
Discharge Orders:
Discharge Patient (As Directed); Ordered 09/11/24
Ordered By: Joey Scott
Discharge Date and Time
Discharge Date/Time: 09/11/24 13:55
Print Language: AUSTRIAN

Documented by User: Kofi Devries MD 09/12/24 23:43
Discharge Summary
Discharge Data
Date of Admission: 09/08/24
Date of Discharge: 09/12/24
Discharge Plan
-
Patient Disposition: Home (Routine Discharge)
Discharge Diagnosis/Procedures: CAUTI
Condition: Good
Diet: Low Cholesterol
Activity: As tolerated
Driving Restrictions: As prior to admission
Instructions: Lowering the risk of a catheter-associated urinary tract infection
Referrals:
UNKNOWN - PT DOES,NOT KNOW [Family Provider] -
Ramesh Cruz MD [Non-Admitting Privileges] - in less than 1 week
Prescriptions:
New
cephalexin 500 mg Capsule
500 mg PO Q12H Qty: 7 0RF
Continued
clopidogrel 75 mg tablet
75 mg PO DAILY
levothyroxine 25 mcg tablet
25 mcg PO DAILY
zolpidem 10 mg tablet
10 mg PO HSPRN PRN (Reason: sleep)
ezetimibe 10 mg tablet
10 mg PO DAILY
rosuvastatin 20 mg tablet
20 mg PO DAILY
Dupixent Pen 300 mg/2 mL pen injector
300 mg SC WEEKLY
aspirin 81 mg Tablet
81 mg PO DAILY
Discharge Orders:
Discharge Patient (As Directed); Ordered 09/11/24
Ordered By: Joey Scott
Discharge Date and Time
Discharge Date/Time: 09/11/24 13:55
Print Language: AUSTRIAN
== END 2024-09-11 13:55 | disposition home or self-care (01) | DRG 698 ==
LOC: 3 WEST ACU 20:44
PROVIDERS: Physician Assistant; Physician Assistant Medical; Student in an Organized Health Care Education/Training Program; ADMITTING PHYSICIAN Hospitalist; ATTENDING PHYSICIAN Family Medicine; EMERGENCY PHYSICIAN Emergency Medicine
PROC: 3E0234Z Introduction of Serum, Toxoid and Vaccine into Muscle, Percutaneous Approach (ICD-10-PCS; 2024-09-11)
DX: T83.518A Infection and inflammatory reaction due to other urinary catheter, initial encounter (principal); A41.9 Sepsis, unspecified organism; N39.0 Urinary tract infection, site not specified; Y84.6 Urinary catheterization as the cause of abnormal reaction of the patient, or of later complication, without mention of misadventure at the time of the procedure; E03.9 Hypothyroidism, unspecified; I10 Essential (primary) hypertension; I25.10 Atherosclerotic heart disease of native coronary artery without angina pectoris; E78.00 Pure hypercholesterolemia, unspecified; L30.9 Dermatitis, unspecified; G47.00 Insomnia, unspecified; Z87.891 Personal history of nicotine dependence; Z79.82 Long term (current) use of aspirin; Z79.899 Other long term (current) drug therapy; Z79.02 Long term (current) use of antithrombotics/antiplatelets; Z79.890 Hormone replacement therapy; Z95.5 Presence of coronary angioplasty implant and graft; Z93.59 Other cystostomy status; Z23 Encounter for immunization
CPT/HCPCS: 80048; 80053; 81003; 81015; 83605; 85025; 85027; 87040; 87086; 87088; 87186; 90677; 93005; 96365; 96366; 99284; G0009